=== PATIENT | male | born 1950 | race Caucasian/White ===

== ENCOUNTER 2024-08-17 07:18 | Day surgery (SDC) | payer MEDICARE ==
[2024-08-15 14:15] VITALS: BMI 35.9
[2024-08-17 09:59] LABS: Hematocrit 42.5 % (38.8-50.0); Hemoglobin 14.6 g/dL (13.5-17.5)
[2024-08-17 10:17] LABS: Anion Gap 13 mmol/L (10-20); BUN (Urea Nitrogen) 24 mg/dL (8.4-25.7); Calc. Creatinine Clearance 123 mL/min (70-130); Calcium 9.5 mg/dL (7.8-10.44); Carbon Dioxide 24 mmol/L (23-31); Chloride 109 mmol/L (98-107); Estimated GFR 88; Glucose 110 mg/dL (83-110); Potassium 3.6 mmol/L (3.5-5.1); Sodium 142 mmol/L (136-145)
[2024-08-17] MEDS ORDERED: Propofol 1,000 MG/100 ML VIAL IV ONE (10:40)
[2024-08-17] MEDS ORDERED: Midazolam HCl 2 mg/2 ml Vial ONE (10:42)
[2024-08-17] MEDS ORDERED: Lidocaine 1% PF 5 ML VIAL ONE (10:42)
[2024-08-17] MEDS ORDERED: Ondansetron PF 4 MG/2 ML Vial ONE (10:42)
[2024-08-17] MEDS ORDERED: PROPOFOL 20 ML ONE (10:42)
[2024-08-17] MEDS ORDERED: Dexamethasone 20 MG/5 ML VIAL ONE (10:42)
[2024-08-17] MEDS ORDERED: fentaNYL 50 mcg/mL 1 mL Vial ONE ×2 (10:42→12:03)
== END 2024-08-17 13:30 | disposition home or self-care (01) ==
LOC: CSHSDC 07:18
PROVIDERS: ATTEND Otolaryngology Plastic Surgery within the Head & Neck
PROC: 0CJS8ZZ Inspection of Larynx, Via Natural or Artificial Opening Endoscopic (ICD-10-PCS; principal; 2024-08-17)
DX: J38.00 Paralysis of vocal cords and larynx, unspecified (principal); R49.0 Dysphonia; I10 Essential (primary) hypertension; I48.91 Unspecified atrial fibrillation; K21.9 Gastro-esophageal reflux disease without esophagitis; Z79.899 Other long term (current) drug therapy; Z96.642 Presence of left artificial hip joint; Z98.890 Other specified postprocedural states; Z87.891 Personal history of nicotine dependence
CPT/HCPCS: 31526; 80048; 85014; 85018; 93005; A4215 ×2; J1100; J2250; J2405; J2704 ×2; J3010; 36415; 93010